=== PATIENT | female | born 1980 ===

== ENCOUNTER 2023-09-02 12:03 | Day surgery (SDC) | payer OTHER, SELFPAY ==
[2023-08-30 07:57] VITALS: BMI 26.5
[2023-09-02] VITALS (7 sets, daily range): BP systolic 104–124; BP diastolic 58–85; PULSE 77–87; RESP 12–23; TEMP 36.2–36.9; O2SAT 98–100; BMI 26.5
[2023-09-02] MEDS: ACETAMINOPHEN 325 MG TABLET 975 MG PO (12:27)
[2023-09-02] MEDS: SCOPOLAMINE 1 PATCH TOP (12:27)
[2023-09-02] MEDS: LACTATED RINGERS 1,000 ML 42 ML IV (12:28)
[2023-09-02] MEDS: ALBUTEROL/IPRATROPIUM 3 ML AMPUL INH (13:54)
--- NOTE | 2023-09-02 14:34 | PM.PREOP ---
Pre-operative Note Interval Note History & Physical reviewed/Exam performed by Physician: Yes Changes to H&P: No
[2023-09-02] MEDS: CEFAZOLIN 2 GM/100 ML PREMIX 100 ML IV (15:15)
[2023-09-02] MEDS: BUPIVACAINE 0.25% (PF) 30 ML, EPINEPHrine 0.15 MG INJ (15:32)
--- NOTE | 2023-09-02 17:01 | DI.RAD.S_ITS ---
PROCEDURE: XR FOOT LT MIN 3V INDICATIONS: HAMMER TOE REPAIR TECHNIQUE: 2 views of the foot were acquired. COMPARISON: [facility], [facility], XR FOOT 3 VIEWS WEIGHT BEARING BILATERAL, 08/04/2023, 11:35. FINDINGS: 1st metatarsal osteotomy with screw fixation x2. 1st digit proximal phalanx osteotomy with screw fixation. No dislocations. IMPRESSION: Intraoperative guidance provided. Dictated by: Kamair Palumbo M.D. on 09/03/2023 at 8:55 Approved by: Kamari Palumbo M.D. on 09/03/2023 at 8:57
[2023-09-02] MEDS: OXYCODONE IR 5 MG TABLET PO (17:30)
[2023-09-02] MEDS: hydrOXYzine 50 MG/ML INJ 25 MG IM (17:30)
--- NOTE | 2023-09-02 17:36 | P.OP_ITS ---
Operative Date/Time/Diagnoses Date of procedure: 09/02/23 Time of procedure: 15:00 Pre-op diagnosis: Hallux valgus left m20.12 Post-op diagnosis: same Procedure & Clinicians Procedure: Correction hallux valgus with double osteotomy CPT code 67623 left, TA Correction of the hallux valgus deformity was performed by 2 osteotomies 1 of the distal 1st metatarsal and a 2nd osteotomy at the proximal phalanx Same procedure as scheduled: Yes Indications: The patient is a 43-year-old female with a painful left bunion.. She has a painful left hallux valgus deformity. She has failed conservative treatment with wider shoes and she is becoming more symptomatic. Risks and benefits of the procedure were explained in detail including but not limited to infection, nonunion, malunion, over correction, under correction, persistent pain, wound healing problems, DVT, pulmonary embolism, stroke paralysis and symptomatic hardware. The patient has elected to proceed with surgery. Consent had been signed. Surgeon: Madga De La Cruz Click Yes if Unassisted: Yes Anesthesia Type: General and Local Operative Notes Findings: Hallux valgus deformity, stable 1st TMT joint. Hallux valgus corrected with combination distal 1st metatarsal osteotomy and proximal phalanx osteotomies Closure Type: primary Specimen(s): none sent Prosthetic devices, grafts, tissues, transplants, or devices: Arthrex 3.5 MIS cannulated screw, beveled 36 mm 4.0 MIS cannulated screw beveled 42 mm Arthrex 3.0 cannulated screw proximal phalanx osteotomy Applied: other (Splint) Estimated Blood Loss (mL): 10 Blood products transfused: none Tourniquet time (min): 82 Procedure in detail: Patient was seen in the preoperative area the site of surgery was marked informed consent confirmed. She was brought back to the operating room by the anesthesia team positioned supine on operative table. General anesthesia was administered. An ipsilateral thigh a bump was placed. An SCD was placed on the contralateral lower extremity. A well-padded thigh tourniquet was placed on the operative extremity. The left lower extremity was prepped and draped in standard sterile fashion a formal time-out procedure was performed confirming the patient's side and site of surgery administration of preoperative antibiotics and presence of informed consent. All were in agreement Attention was turned to the left lower extremity the Esmarch was used for exsanguination and the tourniquet was raised to 250 mm of mercury. The knee was bent over a padded sterile triangle to assist with positioning. Large C-arm was brought in and an AP of the foot was taken where the level of the 1st metatarsal just proximal to the sesamoid complex was marked out. Next a lateral view was obtained marking out the midline of the 1st metatarsal. Next the minimally invasive bur was prepared. A small skin incision was made at the intersection of the midpoint of the metatarsal and the line marked just proximal to the sesamoid complex on the 1st metatarsal. This was taken down to bone. A blunt dissection was completed using the elevators dorsal and plantar along the 1st metatarsal then the minimally invasive bur was inserted this was run through the bone to the lateral cortex then was taken through the dorsal and plantar sweeps to create the transverse osteotomy of the distal metatarsal. This was done under fluoroscopic guidance. Once the osteotomy was free and mobile the shifting device was inserted part way making sure the shifting knob was more distal on the metatarsal head , additionally the toe and metatarsal head sesamoid complex was de rotated to achieve appropriate alignment, next the K- wire was inserted to the lateral cortex of the metatarsal head then the shifting device was twisted down creating the shift in approximately 75% shift was completed then the rest of the minimally invasive jig was placed over the K-wire and secured. The proximal to distal screw guides were inserted 1st for the most proximal guide then a small incision was made in the skin advancing the guide down to bone. Guide K-wire for the 4-0 screw was advanced in a in out in positioning into the lateral metatarsal head. This had to be worked several times on oscillate as it was bouncing off the far cortex of the proximal fragment but this was able to be redirected appropriately. A separate K-wire was placed through the most distal of the proximal holes to hold the reduction and provide additional rotational stability. Next the 2nd more distal guide and K-wire were advanced from proximal to distal this was using a guidewire for a 3.5 screw. The alignment of the guidewires was checked in the AP and lateral planes and was midline and appropriate. Next the most proximal guidewire was measured and then over-drilled and the screw was inserted with care to make sure the bevel was flush against the bone. Next the holding K-wire was removed and then following that the more distal K-wire was measured and overdrilled and a 3.5 screw placed. Once this was completed rest of the K-wires and the jig was removed. As expected there was a small amount of residual hallux valgus so decision was made for the proximal phalanx or Goyo osteotomy to create the double osteotomy bunion correction. Attention was turned to the proximal phalanx under fluoroscopic guidance the osteotomy trajectory was drawn on the skin then a small incision made at the medial midline and the bur again was introduced. This was advanced across the proximal phalanx being careful not to violate the lateral cortex and then again this was rotated dorsally and plantarly to create the wedge-type osteotomy that could be closed down for additional hallux valgus correction. Once this was completed the osteotomy was closed down and held in place and then pinned using a guidewire for the Arthrex cannulated screw this was confirmed in AP and lateral planes then the guidewire skin was opened this was drilled and the appropriate length screw was advanced to close down the osteotomy and securely hold it. Once this was completed final fluoroscopic images were obtained in the AP and lateral planes demonstrating appropriate hallux valgus correction hope appropriate placement of hardware and correction of the sesamoid rotation. The tourniquet was released hemostasis was achieved. The wounds were irrigated. Then closed with 4-0 Monocryl and 3-0 nylon. Local anesthetic was infiltrated for postoperative anesthesia. Sterile dressing was placed with Xeroform gauze and Kolton wrap. Silk tape was used to create a Myerson bunion dressing. Then this was overwrapped with Webril and a posterior and U slab splint. The patient was woken from anesthesia and taken to recovery room in good condition there were no immediate complications with this procedure. All counts were correct. Complications: none Post-operative Condition: stable Disposition: PACU Plan for aftercare: Nonweightbearing x2 weeks then progressive weight-bearing in a postoperative boot x4 weeks then working into normal shoes around 6 weeks postoperatively. May take months to fit in all shoes due to swelling. She will use aspirin 325 mg daily for DVT prophylaxis for 1 month or until fully weight-bearing. Follow up in 2 weeks in Orthopedic Clinic.
== END 2023-09-02 17:52 | disposition home or self-care (01) ==
PROVIDERS: PCP Student in an Organized Health Care Education/Training Program; Referring Provider Orthopaedic Surgery Foot and Ankle Surgery; Visit Provider Orthopaedic Surgery Foot and Ankle Surgery
PROC: 0QBP0ZZ Excision of Left Metatarsal, Open Approach (ICD-10-PCS; CPT 28292; principal; 2023-09-02 13:45)
DX: M20.12 Hallux valgus (acquired), left foot (principal)
CPT/HCPCS: 28299; 73630; 76000; J0171; J0690; J1100; J1170; J1885; J2250; J2405; J2704; J3010; J3410

== ENCOUNTER 2024-05-17 10:04 | Day surgery (SDC) | payer OTHER, SELFPAY ==
[2024-05-08 08:28] VITALS: BMI 26.6
[2024-05-17] VITALS (9 sets, daily range): BP systolic 113–141; BP diastolic 71–92; PULSE 66–79; RESP 14–20; TEMP 36.1–36.7; O2SAT 97–100; BMI 28.1
[2024-05-17] MEDS: ACETAMINOPHEN 325 MG TABLET 975 MG PO (10:17)
[2024-05-17] MEDS: LACTATED RINGERS 1,000 ML 42 ML IV ×2 (10:17→13:01)
[2024-05-17] MEDS: ALBUTEROL/IPRATROPIUM 3 ML AMPUL INH (10:45)
--- NOTE | 2024-05-17 11:08 | PM.PREOP ---
Pre-operative Note Interval Note History & Physical reviewed/Exam performed by Physician: Yes Changes to H&P: No
[2024-05-17] MEDS: CEFAZOLIN 2 GM/100 ML PREMIX 100 ML IV (11:35)
--- NOTE | 2024-05-17 11:37 | SUR.PREOP ---
pt had nerve blocks performed by water taxi boat mate see anesthsia notes, pt tolerated all well vital stable throughout and pt taken to o.r
--- NOTE | 2024-05-17 11:54 | SUR.OPER ---
Supine on padded OR bed, head on pillow, arms secured on padded arm boards at <90 degrees abduction, legs uncrossed, safety belt at thigh, tape over blanket over lower non operative leg, operative leg resting on a bump of 2 folded blankets.
[2024-05-17] MEDS: BUPIVACAINE 0.25% (PF) 30 ML, EPINEPHrine 0.15 MG INJ (12:07)
--- NOTE | 2024-05-17 14:31 | P.OP_ITS ---
Operative Date/Time/Diagnoses Date of procedure: 05/17/24 Time of procedure: 14:31 Pre-op diagnosis: hallux valgus right Metatarsalgia right Deformity right foot 3rd toe Post-op diagnosis: same Procedure & Clinicians Procedure: 1. Double osteotomy correction hallux valgus CPT code 19103 (T5) 2. Osteotomy metatarsal bone to a more bone CPT code 55540+ 59 (T6, T7, T8) 3. 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 She is failed conservative treatment. She has been indicated for surgical correction. The risks and benefits of the procedure have been discussed with the patient and given the opportunity to ask questions. The risks of surgery include but are not limited to infection, malunion, nonunion, persistence of pain, damage to nerves and blood vessels, posttraumatic arthritis, DVT, PE, coardiopulmonary complications and . The patient expressed a thorough understanding of the risks and benefits of surgery and has elected to proceed. Consent was signed in the office. Surgeon: Magda De La Cruz Click Yes if Unassisted: Yes Anesthesia Type: General, Peripheral nerve block and Local Operative Notes Findings: Hallux valgus deformity right foot. Stable 1st ray. Relatively longer lesser metatarsals 2,3,4 shortened with DMMO Non correctable varus angular deformity 3rd toe Closure Type: primary Specimen(s): none sent Prosthetic devices, grafts, tissues, transplants, or devices: Arthrex 3.5-cannulated screws, beveled for correction of hallux valgus with distal 1st metatarsal osteotomy 2.5 headless cannulated screw for correction with Goyo osteotomy to complete the double osteotomy correction. Second 3rd and 4th DMMO osteotomies without fixation Third toe D IP fusion for angular deformity correction with 1.4 K-wire Estimated Blood Loss (mL): 20 Blood products transfused: none Tourniquet time (min): 0 Procedure in detail: Patient was seen in the site of surgery was marked. This was the right foot. Informed consent was confirmed. The patient was brought back to the operating room by the anesthesia team positioned in the supine position. A regional block was placed for postoperative pain control. Attention turned to the right foot. A nonsterile thigh tourniquet was applied but not inflated. The right lower extremity was prepped and draped in the standard sterile fashion a formal time- out procedure was performed confirming the patient's side and site of surgery administration of appropriate preoperative antibiotic. All were in agreement C-arm was utilized on the same side as the operative leg. Landmarks were obtained and the axis of the 1st metatarsal was drawn out on the skin. Entry hong for the osteotomies and wires were also marked along the 1st ray as well as entry hong for the DMMOs just lateral to the metatarsals at the area of the metatarsal neck, extracapsular. Attention was turned to the 1st ray. The small incision was made just proximal to the sesamoid bones at the site of the transverse osteotomy . Elevator was used to elevate the periosteum at the site. The Arthrex bur was utilized in the standard fashion to create the distal metatarsal osteotomy .this was freed up using the hemostat and elevators until it was able to rotate and translate. Next the shifter was placed and fixed to the capital fragment. The jig was then applied and the trajectory for the screws was planned. Due to the mild nature of this bunion screws with the trajectory need to be placed more distal than typical to obtain fixation yet a proximally 70% shift was able to be obtained. The sesamoids we de rotated prior to the shift for excellent alignment. Guidewires were advanced for the proximal and the distal screw with the proximal screw going in out in in the desired fashion. These were then measured at about 2 mm subtracted. They were then overdrilled and placed. 2x3.5 beveled screws were placed. Next attention was turned to the Goyo proximal phalanx osteotomy to complete the double osteotomy fixation great toe as there was some residual deformity. K- wire was advanced throughout the access of the proximal phalanx then backed up. A small incision was made in the base of the proximal phalanx and the bur used in the standard fashion to create a medially based wedge which was then bent to complete across the lateral cortex and the 2.5 screw was advanced across to hold the fixation. Once this was completed attention was turned to the lesser metatarsal. Lesser metatarsal osteotomies were indicated for symptomatic metatarsalgia DMMO osteotomies were completed for the 2nd, 3rd and 4th metatarsals these were extra capsular osteotomies. Small incision was taken just lateral to the metatarsal neck and extracapsular position. Elevator was taken over the dorsum and plantar aspects of the 2nd metatarsal then the bur was placed in a 45 degree angle long the lateral metatarsal and rotated to cut from lateral to medial once this was completed for the 2nd metatarsal the same procedure was performed for the 3rd and 4th metatarsals and fluoroscopy confirmed completeness. Next attention was turned to the 3rd toe varus deformity at the distal interphalangeal joint this was marked out on the skin small incision made at the level of the D IP joint towards the lateral aspect where the delta phalanx was. The bur was placed in to prepare the joint and selectively remove more middle phalanx at the lateral aspect. Once this was completed the bones were reduced in the appropriate alignment and secured using a 1.4 K-wire with compression across the prepared joint surface for fusion. K-wire was then bent and cut. Final fluoroscopic images were obtained and saved. The wounds were irrigated and closed with 4-0 nylon suture. 30 cc of 0.25% Marcaine with epinephrine was injected for local anesthetic. A sterile dressing was applied with Xeroform gauze Webril a Myerson bunion dressing and a posterior splint. The patient was awoken from anesthesia and taken to the recovery room in good condition there were no immediate complications from this procedure. All counts were correct. Complications: none Post-operative Condition: stable Disposition: PACU Plan for aftercare: Nonweightbearing x2 weeks then we will start progressive weight-bearing in a boot or shoe after follow up in Orthopedic Clinic. Elevation to help reduce swelling. Aspirin for DVT prophylaxis. Keep splint clean and dry. Follow up in Orthopedic Clinic in 2 weeks.
[2024-05-17] MEDS: OXYCODONE IR 5 MG TABLET PO (14:52)
== END 2024-05-17 15:12 | disposition home or self-care (01) ==
PROVIDERS: PCP Student in an Organized Health Care Education/Training Program; Referring Provider Orthopaedic Surgery Foot and Ankle Surgery; Visit Provider Orthopaedic Surgery Foot and Ankle Surgery
PROC: 0QBN0ZZ Excision of Right Metatarsal, Open Approach (ICD-10-PCS; CPT 28292; principal; 2024-05-17 11:15)
DX: M20.11 Hallux valgus (acquired), right foot (principal); M77.41 Metatarsalgia, right foot; M21.10 Varus deformity, not elsewhere classified, unspecified site; M20.5X1 Other deformities of toe(s) (acquired), right foot; G89.18 Other acute postprocedural pain
CPT/HCPCS: 28299; 28309; 28285; 64450; C1713; J0171; J0690; J1100; J1885; J2250; J2405; J2704; J3010